=== PATIENT | male | born 1980 | race African-American/Black ===

== ENCOUNTER 2022-12-01 07:41 | Emergency (ER) | payer OTHER ==
[~2022-12-01] VITALS: Ht 165.1 cm; Wt 56.7 kg
[2022-12-01 07:45] VITALS: TEMP 97.8
[2022-12-01 08:16] LABS: PLATELET COUNT 233 K/uL (142-355)
[2022-12-01 09:45] VITALS: BP 125/84
== END 2022-12-01 11:04 | disposition home or self-care (01) ==
LOC: ED 07:41
PROVIDERS: Emergency Medicine
DX: N20.0 Calculus of kidney (principal); S39.012A Strain of muscle, fascia and tendon of lower back, initial encounter; X58.XXXA Exposure to other specified factors, initial encounter; Y92.89 Other specified places as the place of occurrence of the external cause; Z87.442 Personal history of urinary calculi
CPT/HCPCS: 36415; 80053; 81000; 85027; 96374; 99284; J1885